=== PATIENT | male | born 1975 | race Caucasian/White ===

== ENCOUNTER 2016-05-25 09:42 | Emergency (ER) | payer OTHER ==
[~2016-05-25] VITALS: Ht 190.5 cm; Wt 101.0 kg
[2016-05-25 09:49] VITALS: TEMP 37.2; Ht 190.5 cm; Wt 101.0 kg
[2016-05-25] MEDS ORDERED: SODIUM CHLORIDE 0.9% 1000ML 2,000 ML IV STA (10:05)
[2016-05-25] MEDS ORDERED: KETOROLAC TROMETHAMINE 30 MG/ML VIAL IV STA (10:05)
[2016-05-25] MEDS ORDERED: ACETAMINOPHEN 500 MG TAB PO STA (10:05)
--- NOTE | 2016-05-25 10:12 | EMERGENCY ROOM VISIT NOTE ---
History Report prepared by Rosie: Kusum Washington Under the Supervision of: Dr. Cody Elizondo M.D. First contact with patient: 09:54 Chief Complaint: FLU LIKE SX Stated Complaint: COUGH,FEVER,CHILLS,DIARRHEA,JOINT PAIN History of Present Illness The patient is a 41 year old male who presents to the Emergency Room with complaints of a waxing and waning fever that began yesterday. He notes that he was not feeling well when he woke up and he took his temperature, which was 97. By noon yesterday, his temperature michael to 102. Since then, his temperature has been fluctuating. He states that he has had a cough, which has been worsening, over the past month and a half. He used Tessalon Perles with little relief. He also complains of a decreased appetite, sore throat and mild lower abdominal discomfort. He reports eating only a half of a sub since yesterday. The patient was diagnosed with influenza this past February and was treated with Tamiflu. He has not been treated with antibiotics or steroids recently. He has a 19 year history of smoking. Past medical history includes asthma. Denies shortness of breath or other complaints. Source of History: patient Onset: yesterday Position: other (global) Symptom Intensity: Tmax 102 Timing: waxes/wanes Associated Symptoms: + cough, + sorethroat Note: Other symptoms: lower abdominal discomfort Review of Systems See HPI for pertinent positives & negatives. A total of 10 systems reviewed and were otherwise negative. Past Medical & Surgical Medical Problems: (1) Asthma (2) Pain, dental Family History FHx: heart disease Hypertension Social History Smoking Status: Current Every Day Smoker Alcohol Use: occasionally Marital Status: single Occupation Status: employed Current/Historical Medications Scheduled Levofloxacin (Levaquin), 750 MG PO QD@08 Methylprednisolone (Medrol Dosepak), 1 PKT PO UD Scheduled PRN Benzonatate (Tessalon Perles), 100 MG PO TID PRN for Cough Allergies Coded Allergies: Watermelon (Verified Allergy, Severe, ANAPHYLAXIS, 05/25/16) Latex (Verified Allergy, Unknown, rash, 05/25/16) Uncoded Allergies: BEANS (Allergy, Severe, ANAPHYLAXIS, 12/03/14) Physical Exam Vital Signs Date Time Temp Pulse Resp B/P Pulse Ox O2 Delivery O2 Flow Rate FiO2 05/25/16 12:18 95 18 129/71 95 05/25/16 11:25 100 18 123/82 100 Room Air Nebulizer 05/25/16 10:32 80 16 97 Room Air 05/25/16 10:29 94 05/25/16 10:28 89 18 127/78 97 Room Air 05/25/16 09:49 37.2 95 20 118/81 93 Room Air Physical Exam GENERAL: Patient is dehydrated appearing and in mild distress. HEENT: No acute trauma, normocephalic atraumatic, mucous membranes moist, no nasal congestion, no scleral icterus. NECK: No stridor, no adenopathy, no meningismus, trachea is midline. LUNGS: No dyspnea. Bilateral wheezing to auscultation. Junky cough. HEART: Regular rate and rhythm. No murmurs, rubs, gallops appreciated. ABDOMEN: Soft, nontender, bowel sounds positive, no masses appreciated, no peritonitis. BACK: No midline tenderness, no CVA tenderness EXTREMITIES: Normal motion all extremities, no cyanosis, no edema. NEUROLOGIC: Alert and oriented, no acute motor or sensory deficits, no focal weakness, cranial nerves grossly intact. SKIN: No rash, no jaundice, no diaphoresis. Medical Decision & Procedures ER Provider Diagnostic Interpretation: Radiology results and stated below per my review and radiologist interpretation: CHEST ONE VIEW PORTABLE CLINICAL HISTORY: Cough, fever dyspnea COMPARISON STUDY: No previous studies for comparison. FINDINGS: Soft tissue density to the right of the trachea superior to the bifurcation. This statistically is most likely consistent with a right-sided aortic arch although prior studies are not available for comparison. Possibility of mass or chuckie pathology is a secondary consideration but cannot be excluded. CT chest is recommended. Lungs are considered clear. Diaphragms are smooth. IMPRESSION: 1. Right peritracheal soft tissue fullness 2. Although statistically most likely consistent with a right-sided aortic arch, in the absence of prior studies other entities are not excluded. 3. CT of the chest is suggested as follow-up. Electronically signed by: Slava Vogt M.D. 05/25/2016 10:27 AM Dictated Date/Time: 05/25/2016 10:23 AM CHEST CTA for PULMONARY ARTERIES CT DOSE: 475.49 mGy.cm HISTORY: Chest pain dyspnea TECHNIQUE: Multiaxial CT images of the chest were performed following the intravenous administration of contrast to evaluate the pulmonary arteries. Maximal intensity projection images were also obtained. COMPARISON STUDY: Chest series same date FINDINGS: The aorta is right-sided in terms of March location. This calculus for the right peritracheal soft tissue prominence. Pulmonary vasculature enhances appropriately. There are no significant filling defects. lung parenchyma shows a infiltrate of the lingula. There are minimal scattered infiltrative changes posterior aspect superior segment right lower lobe and to a lesser extent posterior aspect left lower lobe. There is a small hiatal hernia with mild distal esophageal wall thickening. IMPRESSION: 1. Study is negative for pulmonary embolus. 2. Right-sided aortic arch accounting for the density seen on plain film evaluation. 3. Infiltrate of the lingula and to lesser extent the superior aspects of the lower lobes bilaterally. 4. Mild distal esophageal wall thickening associated with a small hiatal hernia. Electronically signed by: Slava Vogt M.D. 05/25/2016 11:34 AM Dictated Date/Time: 05/25/2016 11:29 AM Laboratory Results 05/25/16 10:20 Red Blood Count 5.30, Mean Corpuscular Volume 87.5, Mean Corpuscular Hemoglobin 31.3, Mean Corpuscular Hemoglobin Concent 35.8, Mean Platelet Volume 8.6, Neutrophils (%) (Auto) 47.6, Lymphocytes (%) (Auto) 29.5, Monocytes (%) (Auto) 20.8, Eosinophils (%) (Auto) 1.3, Basophils (%) (Auto) 0.5, Neutrophils # (Auto ) 2.96, Lymphocytes # (Auto) 1.83, Monocytes # (Auto) 1.29, Eosinophils # (Auto ) 0.08, Basophils # (Auto) 0.03 05/25/16 10:20 Test 05/25/16 10:20 White Blood Count 6.21 K/uL (4.8-10.8) Red Blood Count 5.30 M/uL (4.7-6.1) Hemoglobin 16.6 g/dL (14.0-18.0) Hematocrit 46.4 % (42-52) Mean Corpuscular Volume 87.5 fL (80-100) Mean Corpuscular Hemoglobin 31.3 pg (25-34) Mean Corpuscular Hemoglobin Concent 35.8 g/dl (32-36) Platelet Count 190 K/uL (130-400) Mean Platelet Volume 8.6 fL (7.4-10.4) Neutrophils (%) (Auto) 47.6 % Lymphocytes (%) (Auto) 29.5 % Monocytes (%) (Auto) 20.8 % Eosinophils (%) (Auto) 1.3 % Basophils (%) (Auto) 0.5 % Neutrophils # (Auto) 2.96 K/uL (1.4-6.5) Lymphocytes # (Auto) 1.83 K/uL (1.2-3.4) Monocytes # (Auto) 1.29 K/uL (0.11-0.59) Eosinophils # (Auto) 0.08 K/uL (0-0.5) Basophils # (Auto) 0.03 K/uL (0-0.2) RDW Standard Deviation 42.8 fL (36.4-46.3) RDW Coefficient of Variation 13.3 % (11.5-14.5) Immature Granulocyte % (Auto) 0.3 % Immature Granulocyte # (Auto) 0.02 K/uL (0.00-0.02) Anion Gap 10.0 mmol/L (3-11) Est Creatinine Clear Calc Drug Dose 125.1 ml/min Estimated GFR () 119.2 Estimated GFR (Non- 102.9 BUN/Creatinine Ratio 10.8 (10-20) Calcium Level 8.5 mg/dl (8.5-10.1) Troponin I < 0.015 ng/ml (0-0.045) Laboratory results as reviewed by me. Medications Administered Medications (Trade) Dose Ordered Sig/[facility] Route Start Time Stop Time Status Last Admin Dose Admin Dexamethasone Sodium Phosphate 10 mg 10 mg NOW ONCE IV 05/25/16 10:15 05/25/16 10:16 DC 05/25/16 10:28 10 MG Sodium Chloride (Nss 1000ml) 2,000 ml @ 999 mls/hr Q2H1M STAT IV 05/25/16 10:05 05/25/16 12:05 DC 05/25/16 10:27 999 MLS/HR Acetaminophen (Tylenol Tab) 1,000 mg NOW STAT PO 05/25/16 10:05 05/25/16 10:07 DC 05/25/16 10:27 1,000 MG Ketorolac Tromethamine (Toradol Inj) 30 mg NOW STAT IV 05/25/16 10:05 05/25/16 10:07 DC 05/25/16 10:27 30 MG Albuterol/ Ipratropium (Duoneb) 12 ml ONE ONCE INH 05/25/16 10:15 05/25/16 10:16 DC 05/25/16 10:32 12 ML Levofloxacin (Levaquin Tab) 750 mg NOW ONCE PO 05/25/16 12:00 05/25/16 12:01 DC 05/25/16 12:00 750 MG Albuterol (Ventolin Hfa Inhaler) 2 puffs NOW ONCE INH 05/25/16 12:00 05/25/16 12:01 DC 05/25/16 12:00 2 PUFFS Hydrocodone Bit/ Homatropine Methylb (Hycodan Elix Homepack 5/1.5MG/ 5ML) 1 homepack UD ONCE PO 05/25/16 12:00 05/25/16 12:01 DC 05/25/16 12:00 1 HOMEPACK ECG Indication: SOB/dyspnea Rate (beats per minute): 92 Rhythm: normal sinus Findings: no acute ischemic change, no ectopy, other (QTc 445) ED Course 1000: The patient was evaluated in room A10. A complete history and physical exam was performed. 1005: Ordered Toradol Inj 30 mg IV, Tylenol 1000 mg PO, NSS 2000 ml @ 999 mls/ hr IV. 1015: Ordered DuoNeb 12 ml INH, Decadron Inj 10 mg IV. 1105: I reassessed the patient. He was feeling much better. He agreed to a CT chest. The patient states that he had a large amount of diarrhea and saved a sample. 1146: Ordered Diltiazem HCl 15 mg IV. 1155: I discussed the case with Dr. Supa Gannon Cardiology. He agrees with outpatient follow up. 1200: Ordered Hydrocodone Bit/Homatropine Methylb 1 homepack PO, Albuterol 2 puffs INH, Levofloxacin 750 mg PO. 1202: Reevaluated the patient. Discussed results and discharge instructions: He verbalized understanding and agreement. The patient is ready for discharge. Medical Decision Differential: Viral, Pharyngitis, Cellulitis, Pneumonia, Influenza, Meningitis, Sepsis, Bacteremia, UTI/Pyelonephritis, Endocrine, Toxicologic, amongst other pathologies entertained. Pleasant 41 yr old male with cough, fevers, chills, body aches, diarrhea, and sore throat. Likely viral though with prolonged cough/chills felt that work-up reasonable. Not septic, afebrile currently and with normal WBC. CXR with unusual right hilum thus CT done to further evaluate, which seemed reasonable given persistent cough/sob. CT without PE nor dissection. Does have left lingular PNA. Also noted to have incidental right descending Aorta which is cause of findings on CXR. Will follow up with Outpatient cards. QTC OK and with smoker and pna will place on levaquin, steroids and home with inhaler and cough med. As not septic, already on Tamiflu once this year, prolonged cough and clearly has PNA I do not feel that Tamiflu indicated at this time. Discussed symptoms requiring return. Consults Time Called: 1150 Consulting Physician: Dr. Cowart - [facility] Returned Call: 1155 I discussed the case with him. He agrees with outpatient follow up. Impression Primary Impression: Lingular pneumonia Additional Impressions: Right aortic arch Dehydration Diarrhea Pharyngitis, acute Scribe Attestation The scribe's documentation has been prepared under my direction and personally reviewed by me in its entirety. I confirm that the note above accurately reflects all work, treatment, procedures, and medical decision making performed by me. Departure Information Dispostion Home / Self-Care Prescriptions Methylprednisolone (MEDROL DOSEPAK) 4 Mg Jamel 1 PKT PO UD for 6 Days, #1 PKT Prov: Cody Elizondo M.D. 05/25/16 Levofloxacin (Levaquin) 750 Mg Tab 750 MG PO QD@08, #5 TAB Prov: Cody Elizondo M.D. 05/25/16 Referrals Nicol Belle D.O. (PCP) Chris Cowart D.O. Patient Instructions My [facility], Pneumonia (Bacterial) - [facility] Additional Instructions Please follow up with [facility] for further evaluation of Aortic abnormality. Problem Qualifiers Additional Impressions: Diarrhea Diarrhea type: unspecified type Qualified Codes: R19.7 - Diarrhea, unspecified Pharyngitis, acute Pharyngitis/tonsillitis etiology: unspecified etiology Qualified Codes: J02.9 - Acute pharyngitis, unspecified
[2016-05-25] MEDS ORDERED: DEXAMETHASONE SOD INJ 10 MG/ML VIAL IV ONE (10:15)
[2016-05-25] MEDS ORDERED: ALBUT/IPRATROP 3MG/0.5MG NEB 3 ML VIAL INH ONE (10:15)
[2016-05-25] MEDS ORDERED: BENZ100C18 PO (10:17)
--- NOTE | 2016-05-25 10:28 | DIAGNOSTIC IMAGING REPORT ---
CHEST ONE VIEW PORTABLE CLINICAL HISTORY: Cough, fever dyspnea COMPARISON STUDY: No previous studies for comparison. FINDINGS: Soft tissue density to the right of the trachea superior to the bifurcation. This statistically is most likely consistent with a right-sided aortic arch although prior studies are not available for comparison. Possibility of mass or chuckie pathology is a secondary consideration but cannot be excluded. CT chest is recommended. Lungs are considered clear. Diaphragms are smooth. IMPRESSION: 1. Right peritracheal soft tissue fullness 2. Although statistically most likely consistent with a right-sided aortic arch, in the absence of prior studies other entities are not excluded. 3. CT of the chest is suggested as follow-up. Electronically signed by: Slava Vogt M.D. 05/25/2016 10:27 AM Dictated Date/Time: 05/25/2016 10:23 AM
[2016-05-25 10:32] VITALS: PULSE 80; O2SAT 97
[2016-05-25 10:34] LABS: BASO % 0.5 %; BASO ABS # 0.03 K/uL (0-0.2); COMPLETE YES; EOS % 1.3 %; HEMATOCRIT 46.4 % (42-52); IG% 0.3 %; LYMPH % 29.5 %; LYMPH ABS # 1.83 K/uL (1.2-3.4); MEAN CELL VOLUME 87.5 fL (80-100); MEAN CORPUSCULAR HEMOGLOBIN 31.3 pg (25-34); MEAN CORPUSCULAR HGB CONC 35.8 g/dl (32-36); MEAN PLATELET VOLUME 8.6 fL (7.4-10.4); MONO % 20.8 %; NEUT % 47.6 %; PLATELET COUNT 190 K/uL (130-400); WHITE BLOOD COUNT 6.21 K/uL (4.8-10.8)
[2016-05-25 11:02] LABS: BLOOD UREA NITROGEN 10 mg/dl (7-18); BUN/CREATININE RATIO 10.8 (10-20); CALCIUM 8.5 mg/dl (8.5-10.1); CARBON DIOXIDE 24 mmol/L (21-32); CHLORIDE 106 mmol/L (98-107); CREATININE 0.91 mg/dl (0.60-1.40); GLUCOSE 98 mg/dl (70-99); POTASSIUM 3.8 mmol/L (3.5-5.1); SODIUM 140 mmol/L (136-145)
[2016-05-25] MEDS ORDERED: OPTIRAY 320 IV PRN (11:15)
--- NOTE | 2016-05-25 11:35 | DIAGNOSTIC IMAGING REPORT ---
CHEST CTA for PULMONARY ARTERIES CT DOSE: 475.49 mGy.cm HISTORY: Chest pain dyspnea TECHNIQUE: Multiaxial CT images of the chest were performed following the intravenous administration of contrast to evaluate the pulmonary arteries. Maximal intensity projection images were also obtained. COMPARISON STUDY: Chest series same date FINDINGS: The aorta is right-sided in terms of March location. This calculus for the right peritracheal soft tissue prominence. Pulmonary vasculature enhances appropriately. There are no significant filling defects. lung parenchyma shows a infiltrate of the lingula. There are minimal scattered infiltrative changes posterior aspect superior segment right lower lobe and to a lesser extent posterior aspect left lower lobe. There is a small hiatal hernia with mild distal esophageal wall thickening. IMPRESSION: 1. Study is negative for pulmonary embolus. 2. Right-sided aortic arch accounting for the density seen on plain film evaluation. 3. Infiltrate of the lingula and to lesser extent the superior aspects of the lower lobes bilaterally. 4. Mild distal esophageal wall thickening associated with a small hiatal hernia. Electronically signed by: Slava Vogt M.D. 05/25/2016 11:34 AM Dictated Date/Time: 05/25/2016 11:29 AM
[2016-05-25] MEDS ORDERED: DILTIAZEM HCL 5 MG/ML 5 ML VIAL IV STA (11:46)
[2016-05-25] MEDS ORDERED: LEVO1TAB35 PO (11:57)
[2016-05-25] MEDS ORDERED: METH4PAK PO (11:57)
[2016-05-25] MEDS ORDERED: LEVOFLOXACIN 250 MG TAB PO ONE (12:00)
[2016-05-25] MEDS ORDERED: ALBUTEROL HFA 8 GM INHALER INH ONE (12:00)
[2016-05-25] MEDS ORDERED: HYCODAN 60ML BOTTLE HOMEPACK PO ONE (12:00)
[2016-05-25 12:18] VITALS: BP 129/71; PULSE 95; O2SAT 95
== END 2016-05-25 12:20 | disposition home or self-care (01) ==
LOC: C.EDB 09:44 → C.EDA 12:20
DX: J18.9 Pneumonia, unspecified organism (principal); Q25.47 Right aortic arch; E86.0 Dehydration; R19.7 Diarrhea, unspecified; J02.9 Acute pharyngitis, unspecified; J45.909 Unspecified asthma, uncomplicated; F17.200 Nicotine dependence, unspecified, uncomplicated; Z82.49 Family history of ischemic heart disease and other diseases of the circulatory system

== ENCOUNTER 2017-06-24 07:12 | Emergency (ER) | payer OTHER ==
[~2017-06-24] VITALS: Ht 190.5 cm; Wt 111.8 kg
[~2017-06-24 07:12] MED LIST: BENZ100C18 PO
[2017-06-24 07:14] VITALS: Ht 190.5 cm; Wt 111.8 kg
--- NOTE | 2017-06-24 07:18 | EMERGENCY ROOM VISIT NOTE ---
ED Visit Note First contact with patient: 07:16 Resident Physician Supervision Note: I interviewed and examined the patient. Discussed with Dr. Rivera and agree with findings and plan as documented in the note. Documented By: Don Main Problem List Medical Problems: (1) Asthma Status: Chronic (2) Pain, dental Status: Resolved Current/Historical Medications Scheduled PRN Benzonatate (Tessalon Perles), 100 MG PO TID PRN for Cough Allergies Coded Allergies: Watermelon (Verified Allergy, Severe, ANAPHYLAXIS, 05/25/16) Latex (Verified Allergy, Unknown, rash, 05/25/16) Uncoded Allergies: BEANS (Allergy, Severe, ANAPHYLAXIS, 12/03/14) Vital Signs Date Time Temp Pulse Resp B/P (MAP) Pulse Ox O2 Delivery O2 Flow Rate FiO2 06/24/17 07:14 38.2 116 20 127/74 97 Room Air Departure Information Referrals Nicol Belle D.O. (PCP) Patient Instructions My [facility]
[2017-06-24] MEDS ORDERED: ALBUT/IPRATROP 3MG/0.5MG NEB 3 ML VIAL INH ONE (07:30)
[2017-06-24] MEDS ORDERED: METHYLPREDNISOLONE 125 MG VIAL IV STA (07:30)
--- NOTE | 2017-06-24 07:37 | EMERGENCY ROOM VISIT NOTE ---
History First contact with patient: 07:16 Chief Complaint: RESPIRATORY PROBLEMS Stated Complaint: DIFFICULTY BREATHING,RACING PULSE,NAUSEA,DIZZY History of Present Illness The patient is a 42 year old male with hx of asthma, HLD, R sided aortic arch who presents to the Emergency Room with complaints of fever, sob, palpitations, cp, nausea, diarrhea and dizziness x 1 day. Associated with body aches, occasional cough and congestion. Denies any vomiting, abdominal pain and dysuria. Symptoms started 6pm last night and slept throughout the night. borrowed neighbor's oxygen tank which he used throughout the night. Reports hx of pneumonia last year. 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 Pt reports taking claritin, prilosec and lipitor on a regular basis. Review of Systems see below Constitutional: + fever ENT: + problem reported (congestion), No sore throat Respiratory: + cough, + shortness of breath Cardiovascular: + chest pain, + palpitations Abdomen: + nausea, + diarrhea, No vomiting Musculoskeletal: + problem reported (myalgias) Genitourinary - Male: No dysuria Neurologic: + problem reported (dizziness) Past Medical/Surgical History Medical Problems: (1) Asthma (2) Pain, dental Family History FHx: heart disease Hypertension Social History Smoking Status: Current Every Day Smoker Alcohol Use: occasionally Marital Status: single Occupation Status: employed Current/Historical Medications Scheduled Pyrbujz-Zzrwwlsdvctzj-Mvotxiun (Excedrin Extra Strength), 2 TABS PO UD Atorvastatin (Lipitor), 20 MG PO HS Fluticasone Propionate (Flovent Hfa), 2 PUFFS INH QAM Loratadine (Claritin), 10 MG PO QAM Omeprazole (Prilosec), 20 MG PO QAM Scheduled PRN Benzonatate (Tessalon Perles), 100 MG PO TID PRN for Cough Physical Exam Vital Signs Date Time Temp Pulse Resp B/P (MAP) Pulse Ox O2 Delivery O2 Flow Rate FiO2 06/24/17 08:43 112 22 114/72 06/24/17 08:15 105 06/24/17 08:13 98 Room Air 06/24/17 07:14 38.2 116 20 127/74 97 Room Air Physical Exam see below General Appearance: + mild distress Head: normocephalic, atraumatic Eyes: normal inspection, PERRL ENT: normal ENT inspection, TMs normal, + pharyngeal erythema Neck: supple Respiratory/Chest: lungs clear, normal breath sounds Cardiovascular: regular rate, rhythm, no murmur Abdomen / GI: normal bowel sounds, non tender, soft Extremities: no calf tenderness, no pedal edema Neurologic/Psych: alert, oriented x 3 Medical Decision & Procedures Laboratory Results 06/24/17 07:55 Red Blood Count 4.99, Mean Corpuscular Volume 86.4, Mean Corpuscular Hemoglobin 30.9, Mean Corpuscular Hemoglobin Concent 35.7, Mean Platelet Volume 8.1, Neutrophils (%) (Auto) 77.6, Lymphocytes (%) (Auto) 11.8, Monocytes (%) (Auto) 9.5, Eosinophils (%) (Auto) 0.4, Basophils (%) (Auto) 0.2, Neutrophils # (Auto) 8.77, Lymphocytes # (Auto) 1.34, Monocytes # (Auto) 1.07, Eosinophils # (Auto) 0.05, Basophils # (Auto) 0.02 06/24/17 07:55 Test 06/24/17 07:55 06/24/17 08:25 White Blood Count 11.31 K/uL (4.8-10.8) Red Blood Count 4.99 M/uL (4.7-6.1) Hemoglobin 15.4 g/dL (14.0-18.0) Hematocrit 43.1 % (42-52) Mean Corpuscular Volume 86.4 fL (80-100) Mean Corpuscular Hemoglobin 30.9 pg (25-34) Mean Corpuscular Hemoglobin Concent 35.7 g/dl (32-36) Platelet Count 186 K/uL (130-400) Mean Platelet Volume 8.1 fL (7.4-10.4) Neutrophils (%) (Auto) 77.6 % Lymphocytes (%) (Auto) 11.8 % Monocytes (%) (Auto) 9.5 % Eosinophils (%) (Auto) 0.4 % Basophils (%) (Auto) 0.2 % Neutrophils # (Auto) 8.77 K/uL (1.4-6.5) Lymphocytes # (Auto) 1.34 K/uL (1.2-3.4) Monocytes # (Auto) 1.07 K/uL (0.11-0.59) Eosinophils # (Auto) 0.05 K/uL (0-0.5) Basophils # (Auto) 0.02 K/uL (0-0.2) RDW Standard Deviation 43.2 fL (36.4-46.3) RDW Coefficient of Variation 13.7 % (11.5-14.5) Immature Granulocyte % (Auto) 0.5 % Immature Granulocyte # (Auto) 0.06 K/uL (0.00-0.02) Anion Gap 7.0 mmol/L (3-11) Est Creatinine Clear Calc Drug Dose 121.2 ml/min Estimated GFR () 99.6 Estimated GFR (Non- 85.9 BUN/Creatinine Ratio 11.7 (10-20) Calcium Level 7.7 mg/dl (8.5-10.1) Total Creatine Kinase 156 U/L (39-308) Creatine Kinase MB 0.7 ng/ml (0.5-3.6) Creatine Kinase MB Ratio 0.4 (0-3.0) Troponin I < 0.015 ng/ml (0-0.045) Influenza Type A Antigen Neg for Influ A (NEG) Influenza Type B Antigen Neg for Influ B (NEG) Medications Administered Medications (Trade) Dose Ordered Sig/Keshav Route Start Time Stop Time Status Last Admin Dose Admin Albuterol/ Ipratropium (Duoneb) 3 ml NOW ONCE INH 06/24/17 07:30 06/24/17 07:32 DC 06/24/17 08:02 3 ML Methylprednisolone Sodium Succinate (Solu-Medrol IV) 125 mg NOW STAT IV 06/24/17 07:30 06/24/17 07:32 DC 06/24/17 08:03 125 MG Acetaminophen (Tylenol Tab) 1,000 mg NOW STAT PO 06/24/17 07:40 06/24/17 07:41 DC 06/24/17 08:02 1,000 MG Medical Decision 42 year old male with hx of asthma, HLD, R sided aortic arch who presents to the Emergency Room with complaints of fever, sob, palpitations, cp, nausea, diarrhea and dizziness x 1 day consistent with likely influenza/viral URI vs. viral gastroenteritis vs. asthma exacerbation vs. PNA vs. VT -Ordered influenza swab - negative influenza A and B -Ordered CXR - no acute cardiopulmonary findings -Ordered CBC, BMP - mild WBC elevation of 11.31; K of 3.2 -Ordered EKG - sinus tachycardia 102 QTC 435 -Ordered CKMB, troponin - negative -Ordered duoneb x 1 and methylpred 125mg - administered at 0730 - reported improvement post medications -Pt stable to be discharged home with prednisone 40mg daily x 5 days and instructed to continue using albuterol inhaler as needed -Tylenol/ibuprofen as needed for fever -PCP follow up in 1-2 days - Medication Reconcilliation Current Medication List: was personally reviewed by me Blood Pressure Screening Patient's blood pressure: Normal blood pressure Impression Primary Impression: Asthma exacerbation Additional Impression: Viral URI Departure Information Dispostion Home / Self-Care Condition GOOD Referrals Nicol Belle D.O. (PCP) Patient Instructions My [facility] Problem Qualifiers
[2017-06-24] MEDS ORDERED: ACETAMINOPHEN 500 MG TAB PO STA (07:40)
[2017-06-24 08:10] LABS: BASO % 0.2 %; BASO ABS # 0.02 K/uL (0-0.2); EOS % 0.4 %; EOS ABS # 0.05 K/uL (0-0.5); HEMATOCRIT 43.1 % (42-52); HEMOGLOBIN 15.4 g/dL (14.0-18.0); IG# 0.06 K/uL (0.00-0.02); LYMPH % 11.8 %; LYMPH ABS # 1.34 K/uL (1.2-3.4); MEAN CELL VOLUME 86.4 fL (80-100); MEAN CORPUSCULAR HEMOGLOBIN 30.9 pg (25-34); MEAN CORPUSCULAR HGB CONC 35.7 g/dl (32-36); MEAN PLATELET VOLUME 8.1 fL (7.4-10.4); MONO % 9.5 %; MONO ABS # 1.07 K/uL (0.11-0.59); NEUT % 77.6 %; NEUT ABS # 8.77 K/uL (1.4-6.5); PLATELET COUNT 186 K/uL (130-400); RED CELL DISTRIBUTION WIDTH CV 13.7 % (11.5-14.5); RED CELL DISTRIBUTION WIDTH SD 43.2 fL (36.4-46.3); WHITE BLOOD COUNT 11.31 K/uL (4.8-10.8)
[2017-06-24 08:23] LABS: BLOOD UREA NITROGEN 12 mg/dl (7-18); CALCIUM 7.7 mg/dl (8.5-10.1); CARBON DIOXIDE 22 mmol/L (21-32); CREATININE 1.05 mg/dl (0.60-1.40); GLUCOSE 106 mg/dl (70-99); POTASSIUM 3.2 mmol/L (3.5-5.1); SODIUM 136 mmol/L (136-145)
[2017-06-24 08:28] LABS: CKMB 0.7 ng/ml (0.5-3.6)
[2017-06-24] MEDS ORDERED: ASPI-391 PO (08:36)
[2017-06-24] MEDS ORDERED: FLVHFA110 INH (08:36)
[2017-06-24] MEDS ORDERED: CLR10 PO (08:36)
[2017-06-24 08:58] LABS: INFLUENZA B ANTIGEN Neg for Influ B (NEG)
--- NOTE | 2017-06-24 09:03 | DIAGNOSTIC IMAGING REPORT ---
CHEST ONE VIEW PORTABLE CLINICAL HISTORY: Shortness of breath. COMPARISON STUDY: Chest radiograph and chest CT May 25, 2016. FINDINGS: Note is made of a right aortic arch. No pneumothorax or pleural effusion is noted. There is no evidence for pulmonary edema. Cardiomediastinal silhouette is otherwise unremarkable. IMPRESSION: No acute cardiopulmonary findings. Electronically signed by: Chris Main M.D. 06/24/2017 9:02 AM Dictated Date/Time: 06/24/2017 9:01 AM
[2017-06-24] MEDS ORDERED: ATOR-22 PO (09:17)
[2017-06-24] MEDS ORDERED: PRLSR20 PO (09:17)
[2017-06-24 09:20] VITALS: BP 139/96; PULSE 99; TEMP 37.9; O2SAT 96
[2017-06-24] MEDS ORDERED: PRED20TA PO (09:22)
== END 2017-06-24 09:48 | disposition home or self-care (01) ==
LOC: C.EDB 07:13
DX: J45.901 Unspecified asthma with (acute) exacerbation (principal); J06.9 Acute upper respiratory infection, unspecified; E78.5 Hyperlipidemia, unspecified; Z79.899 Other long term (current) drug therapy; F17.210 Nicotine dependence, cigarettes, uncomplicated; Z82.49 Family history of ischemic heart disease and other diseases of the circulatory system